=== PATIENT | male | born 1965 | race Caucasian/White ===

== ENCOUNTER 2019-10-31 17:01 | Emergency (ER) | payer SELFPAY ==
[~2019-10-31] VITALS: Ht 188 cm; Wt 145.0 kg
[~2019-10-31 17:01] MED LIST: ATOR20TA37 PO
--- NOTE | 2019-10-31 17:25 | NUR ---
PT HAS CO CHEST PAIN STARTING YESTERDAY THAT COMES AND GOES. 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 DENIES CP, SOB. NO COUGH, FEVER. DENIES N/V OR DIAPHORESIS. EKG COMPLETE, RECORD CLERK IN PLACE
[2019-10-31] MEDS ORDERED: ASPIRIN 81 MG TABLET CHEW ONE (17:30)
--- NOTE | 2019-10-31 17:33 | NUR ---
MEDICATED 89 CHILDR[facility]
[2019-10-31 17:40] LABS: BASOPHILS # (AUTO) 0.01 x10^3/uL (0-0.1); BASOPHILS % (AUTO) 0 % (0-1); EOSINOPHILS # (AUTO) 0.11 x10^3/uL (0-0.4); EOSINOPHILS % (AUTO) 1 % (1-7); LYMPHOCYTES # (AUTO) 1.12 x10^3/uL (1-3.4); LYMPHOCYTES % (AUTO) 11 % (22-44); MD NO; MEAN CORPUSCULAR HEMOGLOBIN 27.3 pg (27.5-34.5); MEAN CORPUSCULAR HGB CONC 32.9 g/dL (33.2-36.2); MEAN CORPUSCULAR VOLUME 82.8 fL (81-97); MONOCYTES # (AUTO) 0.51 x10^3/uL (0.2-0.8); MONOCYTES % (AUTO) 5 % (2-9); NEUTROPHILS # (AUTO) 8.82 x10^3/uL (1.8-6.8); NEUTROPHILS % (AUTO) 84 % (42-75); PLATELET COUNT 352 x10^3/uL (130-400); RED BLOOD COUNT 5.66 x10^6/uL (4.38-5.82); RED CELL DISTRIBUTION WIDTH 13.8 % (9.4-14.8)
[2019-10-31 17:50] LABS: ALBUMIN 3.3 g/dL (3.4-5.0); ANION GAP 8 mmol/L (5-15); CALCIUM 9.1 mg/dL (8.5-10.1); CHLORIDE 105 mmol/L (98-107)
[2019-10-31 17:56] LABS: ALANINE AMINOTRANSFERASE 35 U/L (12-78); ALKALINE PHOSPHATASE 88 U/L (45-117); BILIRUBIN,TOTAL 0.7 mg/dL (0.2-1.0); CREATININE 1.15 mg/dL (0.7-1.3); TOTAL PROTEIN 7.5 g/dL (6.4-8.2)
[2019-10-31 17:58] LABS: TROPONIN I 0.147 ng/mL (0.000-0.045)
[2019-10-31] MEDS ORDERED: ASPIRIN 81 MG TABLET CHEW PO ONE (18:00)
[2019-10-31] MEDS ORDERED: MORPHINE SULFATE 4 MG/ML, 1ML ONE (18:09)
[2019-10-31] MEDS ORDERED: ONDANSETRON 2MG/ML, 2ML ONE (18:09)
[2019-10-31 18:13] VITALS: BP 173/114
[2019-10-31] MEDS ORDERED: NITROGLYCERIN SINGLE TAB 0.4 MG SL ONE (18:19)
--- NOTE | 2019-10-31 18:25 | NUR ---
PT HAS CO OF CHEST PAIN, PT UNCOMFORTABLE. MEDICATED PER ORDERS W NITRO AND MORPHINE/ ZOFRAN. EKG IN PROCESS
[2019-10-31] MEDS ORDERED: ONDANSETRON 2MG/ML, 2ML IVPush ONE (18:30)
[2019-10-31] MEDS ORDERED: MORPHINE SULFATE 4 MG/ML, 1ML IVPush PRN (18:30)
[2019-10-31] MEDS ORDERED: NITROGLYCERIN 0.4 MG BOTTLE (25 TABS) SL PRN (18:30)
--- NOTE | 2019-10-31 18:39 | NUR ---
Code cardiac called @ 183 Called cardiology @ 183
--- NOTE | 2019-10-31 18:50 | NUR ---
PT ON ZAKIA, NEW IV US 18 LEFT UPPER ARM. PAIN UNRELIEVED, PT WILL BE TRANSFERRED TO [facility],
[2019-10-31] MEDS ORDERED: HEPARIN 5,000 UNITS/ML, 1ML IV PRN (19:00)
[2019-10-31] MEDS ORDERED: HEPARIN 5,000 UNITS/ML, 1ML IV ONE (19:00)
[2019-10-31] MEDS ORDERED: HEPARIN 25,000 UNITS/250ML PMX 250 ML IV PRN (19:00)
[2019-10-31] MEDS ORDERED: HEPARIN 5,000 UNITS/ML, 1ML ONE (19:05)
--- NOTE | 2019-10-31 19:05 | NUR ---
REPORT TO AUREA. PT TRANSFERRED VIA [employer]. REPORT TO LINDSAY
--- NOTE | 2019-10-31 19:07 | NUR ---
Assumed care of pt at shift change. Pt received morphine, aspirin, zofran per protocol from previous shift RN, see eMAR for further details. Upon [facility] arrival, EMS states they are unable to travel with Heparin drip. Heparin bolus of 4000 units given by this RN with previous shift RN at bedside to verify dose. Pt continues to c/o 10/10 L sided chest pain. Diaphoretic. HTN 170s/100s, MD aware. RN to RN report given to set up and charger at [facility]. dentofacial orthopedics dentist aware that Heparin drip was not started and 4000 unit bolus was given. Pt left this ED for [facility] ED at 1908.
== END 2019-10-31 19:17 | disposition short-term general hospital (02) ==
LOC: ED 18:24
DX: I21.19 ST elevation (STEMI) myocardial infarction involving other coronary artery of inferior wall (principal); R07.2 Precordial pain; I44.1 Atrioventricular block, second degree; I48.4 Atypical atrial flutter; I10 Essential (primary) hypertension; E11.9 Type 2 diabetes mellitus without complications
CPT/HCPCS: 36415; 71045; 80047; 80053; 84484; 85025; 85520; 93005; 96374; 96375; 99285; J1644; J2270; J2405